=== PATIENT | male | born 1980 | race Hispanic/Latino ===

== ENCOUNTER → 2016-06-11 | Outpatient (CLI) | payer OTHER ==
--- NOTE | 2016-06-14 08:12 | ECHOCARDIOGRAPHY REPORT ---
PROCEDURE PHYSICIAN: TRACEY SCHERER DATE OF PROCEDURE: 06/11/2016 TWO DIMENSIONAL ECHOCARDIOGRAM REPORT PRIMARY PHYSICIAN: OTHER PHYSICIAN: [facility] REFERRING PHYSICIAN: ORDERING PHYSICIAN: Dana Reeys APRN INDICATION FOR THE PROCEDURE: Chest discomfort. MEASUREMENTS DERIVED VALUES LV DIAMETER (LAX) NORMALS NORMALS Diastolic 4.2 (3.6-5.2) Eject. Fract. (60%+/-6%) Systolic (2.3-3.9) Diastolic Vol. % Shortening (0.22-0.42) Systolic Vol. Aortic Root 3.4 IVS THICKNESS Diastolic 1.1 (0.6-1.1) LVPW THICKNESS Diastolic 1.2 (0.6-1.1) LA DIAMETER Systolic 3.3 (2.1-3.7) DESCRIPTION: Two-dimensional echocardiography shows normal global left ventricular systolic function with normal regional wall motion. Aortic, mitral and tricuspid valve leaflets show good leaflet excursion. There is no significant pericardial effusion. There is no evidence of any significant pericardial effusion. Doppler imaging shows trivial, mitral, tricuspid, aortic and pulmonic regurgitation. There is no Doppler evidence of any significant valvular stenosis. Aortic valve appears to be trileaflet. There is no evidence of any significant intracardiac shunt on this transthoracic echocardiographic study, although the subcostal views are limited. Inferior vena cava does not appear dilated and does exhibit inspiratory collapse. CONCLUSIONS: 1. Normal global left ventricular systolic function with an ejection fraction of 65%. 2. Trivial aortic, mitral, tricuspid, and pulmonic regurgitation. 3. No evidence of significant valvular stenosis. 4. Pulmonary artery systolic pressure could not be reliably estimated on this study. Job ID: [id number] Dictated Date: 06/13/2016 09:44:24 Core Cutter And Reamer Date: 06/14/2016 08:03:34 / [email or web address]
--- NOTE | 2016-06-14 11:16 | STRESS TEST ---
PROCEDURE PHYSICIAN: TRACEY SCHERER EXERCISE STRESS ECHOCARDIOGRAPHY REPORT DATE OF PROCEDURE: 06/11/2016 ORDERING PHYSICIAN: Dana Reyes PLASTIC EXTRUDING MACHINE OPERATOR [place], [place]. CLINICAL DIAGNOSIS: Chest discomfort. Baseline echocardiography showed normal global left ventricular systolic function with normal regional wall motion. Subsequently, exercise was carried out on a treadmill. John protocol was employed. Heart rate response to exercise was normal. Blood pressure response to exercise was hypertensive. There were significant ST segment changes with exercise. There was no significant arrhythmia. The test was stopped on account of fatigue. He exercised for a total of 12 minutes and the John protocol and attained 12.8 METs of workload and 105% of maximum predicted heart rate. Exercise was repeated in immediately post exercise and it showed normal augmentation of wall motion and ejection fraction. No regional wall motion abnormalities are seen. CONCLUSION: 1. No evidence of any exercise-induced myocardial ischemia on this study. 2. No evidence of myocardial infarction on this study. 3. Normal global left ventricular systolic function with an ejection fraction of approximately 50% at baseline. 4. Hypertensive response to exercise. Job ID: [id number] Dictated Date: 06/13/2016 09:47:15 Html Web Developer Date: 06/14/2016 11:02:04 / [email or web address]
== END ==
LOC: CARD 08:33
PROVIDERS: ATTEND Nurse Practitioner Family
DX: R07.9 Chest pain, unspecified (principal)
CPT/HCPCS: 93306; 93351

== ENCOUNTER 2020-08-20 02:51 | Emergency (ER) | payer SELFPAY ==
[~2020-08-20] VITALS: Ht 165 cm; Wt 82.0 kg
[2020-08-20] MEDS ORDERED: LACTATED RINGERS 1,000 ML IV ONE (03:00)
[2020-08-20 03:12] LABS: BASOPHILS % (AUTO) 0 % (0-10); EOSINOPHILS # (AUTO) 0.1 10^3/uL (0.0-0.3); EOSINOPHILS % (AUTO) 1 % (0-10); HEMATOCRIT 48 % (40-54); HEMOGLOBIN 15.5 g/dL (13.3-17.7); LYMPHOCYTES # (AUTO) 1.9 10^3/uL (1.0-4.0); LYMPHOCYTES % (AUTO) 22 % (12-44); MEAN CORPUSCULAR HEMOGLOBIN 27 pg (25-34); MEAN CORPUSCULAR HGB CONC 32 g/dL (32-36); MEAN CORPUSCULAR VOLUME 85 fL (80-99); MEAN PLATELET VOLUME 10.1 fL (9.0-12.2); MONOCYTES # (AUTO) 0.7 10^3/uL (0.0-1.0); MONOCYTES % (AUTO) 8 % (0-12); NEUTROPHILS # (AUTO) 5.7 10^3/uL (1.8-7.8); NEUTROPHILS % (AUTO) 68 % (42-75); PLATELET COUNT 239 10^3/uL (130-400); WHITE BLOOD COUNT 8.3 10^3/uL (4.3-11.0)
--- NOTE | 2020-08-20 03:12 | ED Syncope ---
General Chief Complaint: Dizziness/Syncope Stated Complaint: DIZZY,LIGHTHEADED Source of Information: Patient Exam Limitations: No Limitations History of Present Illness Date Seen by Provider: Aug 20, 2020 Time Seen by Provider: 02:47 Initial Comments Patient to the ER by EMS from home with chief complaint that he passed out and was on the ground in the kitchen. Patient states he was only out for a couple seconds maybe a minute. the patient relates that he was having an argument with his son and his about the son being out late at night and he says bad things happen to people at night. He became very emotionally distraught about this argument and decided he was done arguing. He went and got his tea that helps calm him down but he drinks before he goes to bed drank it and then apparently passed out on the floor in the kitchen which is where EMS found him. EMS relates that he did have a fever of [address] route however nursing took his temperature on arrival and it was 98.0 oral. Patient denies any recent fevers chills cough shortness of air chest pain nausea vomiting diarrhea dysuria constipation or travel outside the [facility]. No sick contacts other than he has a young child with asthma. He says he has a history of hyperlipidemia and may be hypertension and follows with community health however they put him on some medicine and he did not like how it made him feel so he does not take it. Allergies and Home Medications Allergies Coded Allergies: No Known Drug Allergies (Unverified , 08/20/20) Patient Home Medication List Home Medication List Reviewed: Yes Review of Systems Constitutional: No chills, No fever, No malaise EENTM: No ear discharge, No ear pain Respiratory: No cough, No short of breath Cardiovascular: No edema, No palpitations Gastrointestinal: No abdominal pain, No nausea, No vomiting Genitourinary: No discharge, No dysuria Musculoskeletal: No back pain, No joint pain All Other Systems Reviewed Negative Unless Noted: Yes Past Wnbluws-Kfxjha-Lnaupb Hx Patient Social History Alcohol Use: Denies Use Drug of Choice: Denies Smoking Status: Never a Smoker 2nd Hand Smoke Exposure: No Recent Hopitalizations: No Immunizations Up To Date Tetanus Booster (TDap): Unknown Seasonal Allergies Seasonal Allergies: No Past Medical History Surgeries: No Respiratory: No Cardiac: Yes High Cholesterol Neurological: No Genitourinary: No Gastrointestinal: No Musculoskeletal: No Endocrine: No HEENT: No Cancer: No Psychosocial: No Integumentary: No Blood Disorders: No Physical Exam Vital Signs Vital Signs - First Documented 08/20/20 02:54 Temp 37.0 Pulse 105 Resp 18 B/P (MAP) 170/120 (137) Pulse Ox 98 O2 Delivery Room Air Capillary Refill : Height, Weight, BMI Height: '" Weight: lbs. oz. kg; BMI Method: General Appearance: WD/WN, Mild Distress HEENT: PERRL/EOMI, Pharynx Normal, Moist Mucous Membranes Neck: Full Range of Motion, Normal Inspection Cardiovascular: Regular Rate, Rhythm, No Edema, No Gallop, No JVD, No Murmur, Normal Peripheral Pulses Respiratory: Lungs Clear, Normal Breath Sounds, No Accessory Muscle Use, No Respiratory Distress Gastrointestinal: Normal Bowel Sounds, No Organomegaly, Soft Neurologic/Psychiatric: Alert, Oriented x3, No Motor/Sensory Deficits Cranial Nerves: Normal Hearing, Normal Speech, PERRL Coordination/Gait: Normal Gait Motor/Sensory: No Motor Deficit, No Sensory Deficit Skin: Normal Color, Warm/Dry Progress/Results/Core Measures Results/Orders Lab Results Laboratory Tests Test 08/20/20 02:59 08/20/20 03:00 08/20/20 03:19 Range/Units White Blood Count 8.3 4.3-11.0 10^3/uL Red Blood Count 5.70 H 4.30-5.52 10^6/uL Hemoglobin 15.5 13.3-17.7 g/dL Hematocrit 48 40-54 % Mean Corpuscular Volume 85 80-99 fL Mean Corpuscular Hemoglobin 27 25-34 pg Mean Corpuscular Hemoglobin Concent 32 32-36 g/dL Red Cell Distribution Width 12.6 10.0-14.5 % Platelet Count 239 130-400 10^3/uL Mean Platelet Volume 10.1 9.0-12.2 fL Immature Granulocyte % (Auto) 1 % Neutrophils (%) (Auto) 68 42-75 % Lymphocytes (%) (Auto) 22 12-44 % Monocytes (%) (Auto) 8 0-12 % Eosinophils (%) (Auto) 1 0-10 % Basophils (%) (Auto) 0 0-10 % Neutrophils # (Auto) 5.7 1.8-7.8 10^3/uL Lymphocytes # (Auto) 1.9 1.0-4.0 10^3/uL Monocytes # (Auto) 0.7 0.0-1.0 10^3/uL Eosinophils # (Auto) 0.1 0.0-0.3 10^3/uL Basophils # (Auto) 0.0 0.0-0.1 10^3/uL Immature Granulocyte # (Auto) 0.0 0.0-0.1 10^3/uL Prothrombin Time 12.7 12.2-14.7 SEC INR Comment 0.9 0.8-1.4 Activated Partial Thromboplast Time 27 24-35 SEC Sodium Level 138 135-145 MMOL/L Potassium Level 3.6 3.6-5.0 MMOL/L Chloride Level 103 98-107 MMOL/L Carbon Dioxide Level 22 21-32 MMOL/L Anion Gap 13 5-14 MMOL/L Blood Urea Nitrogen 17 7-18 MG/DL Creatinine 0.99 0.60-1.30 MG/DL Estimat Glomerular Filtration Rate > 60 BUN/Creatinine Ratio 17 Glucose Level 138 H 70-105 MG/DL Calcium Level 9.5 8.5-10.1 MG/DL Corrected Calcium 8.5-10.1 MG/DL Total Bilirubin 0.2 0.1-1.0 MG/DL Aspartate Amino Transf (AST/SGOT) 29 5-34 U/L Alanine Aminotransferase (ALT/SGPT) 32 0-55 U/L Alkaline Phosphatase 59 40-136 U/L Troponin I < 0.028 <0.028 NG/ML C-Reactive Protein High Sensitivity 0.10 0.00-0.50 MG/DL Total Protein 8.1 6.4-8.2 GM/DL Albumin 4.7 H 3.2-4.5 GM/DL Serum Alcohol < 10 <10 MG/DL Coronavirus 2019 (ASHWIN) Negative Negative Urine Color YELLOW Urine Clarity CLEAR Urine pH 6.0 5-9 Urine Specific [place] 1.010 L 1.016-1.022 Urine Protein NEGATIVE NEGATIVE Urine Glucose (UA) NEGATIVE NEGATIVE Urine Ketones NEGATIVE NEGATIVE Urine Nitrite NEGATIVE NEGATIVE Urine Bilirubin NEGATIVE NEGATIVE Urine Urobilinogen 0.2 < = 1.0 MG/DL Urine Leukocyte Esterase 1+ H NEGATIVE Urine RBC (Auto) NEGATIVE NEGATIVE Urine RBC NONE /HPF Urine WBC 25-50 H /HPF Urine Crystals NONE /LPF Urine Bacteria FEW H /HPF Urine Casts NONE /LPF Urine Mucus NEGATIVE /LPF Urine Culture Indicated YES Urine Opiates Screen NEGATIVE NEGATIVE Urine Oxycodone Screen NEGATIVE NEGATIVE Urine Methadone Screen NEGATIVE NEGATIVE Urine Propoxyphene Screen NEGATIVE NEGATIVE Urine Barbiturates Screen NEGATIVE NEGATIVE Ur Tricyclic Antidepressants Screen NEGATIVE NEGATIVE Urine Phencyclidine Screen NEGATIVE NEGATIVE Urine Amphetamines Screen NEGATIVE NEGATIVE Urine Methamphetamines Screen NEGATIVE NEGATIVE Urine Benzodiazepines Screen NEGATIVE NEGATIVE Urine Cocaine Screen NEGATIVE NEGATIVE Urine Cannabinoids Screen NEGATIVE NEGATIVE Micro Results Microbiology 08/20/20 Influenza Types A,B Antigen (JORGE) - Final, Complete My Orders Orders - VINH BENTON Cbc With Automated Diff (08/20/20 03:05) Comprehensive Metabolic Panel (08/20/20 03:05) Hs C Reactive Protein (08/20/20 03:05) Ua Culture If Indicated (08/20/20 03:05) Drug Screen Stat (Urine) (08/20/20 03:05) Covid 19 Inhouse Test (08/20/20 03:05) Influenza A And B Antigens (08/20/20 03:05) Ekg Tracing (08/20/20 03:05) Continuous Ekg Monitoring (08/20/20 03:05) Protime With Inr (08/20/20 03:05) Partial Thromboplastin Time (08/20/20 03:05) Troponin I (08/20/20 03:05) Chest 1 View, Ap/Pa Only (08/20/20 03:05) Lactated Ringers (Lr 1000 Ml Iv Solution (08/20/20 03:00) Alcohol (08/20/20 03:12) Urine Culture (08/20/20 03:19) BNP (08/20/20 03:42) Medications Given in ED Current Medications Medications Dose Ordered Sig/Jean Claude Route Start Time Stop Time Status Last Admin Dose Admin Lactated Ringer's 1,000 ml @ ud STK-MED ONCE IV 08/20/20 03:00 08/20/20 03:07 DC 08/20/20 03:11 0 MLS/HR Vital Signs/I&O 08/20/20 02:54 Temp 37.0 Pulse 105 Resp 18 B/P (MAP) 170/120 (137) Pulse Ox 98 O2 Delivery Room Air Progress Progress Note #1: Time: 03:10 Progress Note Plan to check some labs including a troponin, BNP and get an EKG and chest x- ray. His syncopal episode appears to be more related to an emotional state. We will check alcohol and drug screen since he is tachycardic and has elevated blood pressure 200/110 per EMS. He is 155/107 here in the ER as he is coming down his blood pressure has been coming down. We will give him a liter of fluids. He is not having any discomfort at this time and denies having any fevers or chills. Progress Note #2: Time: 03:40 Progress Note 2 points Nauruan Syncope Risk Score; Medium risk. 5.1% risk of 30-day serious adverse event. We will treat his pyuria outpatient with Keflex. He has aseptic vital signs at this time. Initial ECG Impression Date: Aug 20, 2020 Initial ECG Impression Time: 03:12 Initial ECG Rate: 90 Initial ECG Rhythm: Normal Sinus Initial ECG Intervals: Normal Initial ECG Impression: Normal Comment Normal sinus rhythm without clinically relevant ST elevation or depression. Diagnostic Imaging Diagonstic Imaging: Xray Plain Films/CT/US/NM/MRI: chest Comments No acute cardiopulmonary processes on 1 view chest x-ray Reviewed: Reviewed by Me Departure Impression Primary Impression: Syncope Qualified Codes: R55 - Syncope and collapse Disposition: HOME, SELF-CARE Condition: Stable Departure-Patient Inst. Decision time for Depature: 04:00 Referrals: [facility]/YONI JONES MD NO,LOCAL PHYSICIAN (PCP) Primary Care Physician Patient Instructions: Syncope (Fainting) (DC) Add. Discharge Instructions: Your blood pressure was elevated when you arrived however went back down to normal as you calm down. Because it was elevated and you passed out tonight this concerns as there could be something going on with your heart. Your blood work tonight looks okay so I would like you to follow-up with Dr. Morgan the heart doctor next week. Call for an appointment on Friday. Return to the ER promptly if you have more passing out episodes, chest pain or shortness of breath. I would like you to take cefdinir and antibiotic for the next 7 days to help clear up a bladder infection. All discharge instructions reviewed with patient and/or family. Voiced understanding. Scripts Cefdinir (Cefdinir) 300 Mg Capsule 300 MG PO BID, #14 CAP 0 Refills Prov: VINH BENTON 08/20/20 Work/School Note: Work Release Form Date Seen in the Emergency Department: Aug 20, 2020 Return to Work: Aug 21, 2020 Restrictions: No Restrictions Copy Copies To 1: YONI MORGAN MD, TITUS J Aug 20, 2020 03:12
[2020-08-20 03:20] LABS: ALBUMIN 4.7 GM/DL (3.2-4.5)
[2020-08-20 03:21] LABS: CHLORIDE 103 MMOL/L (98-107); POTASSIUM 3.6 MMOL/L (3.6-5.0); SODIUM 138 MMOL/L (135-145)
[2020-08-20 03:22] LABS: CALCIUM 9.5 MG/DL (8.5-10.1)
[2020-08-20 03:23] LABS: GLUCOSE 138 MG/DL (70-105); TOTAL PROTEIN 8.1 GM/DL (6.4-8.2)
[2020-08-20 03:24] LABS: CARBON DIOXIDE 22 MMOL/L (21-32); INR 0.9 (0.8-1.4); PROTHROMBIN TIME PATIENT 12.7 SEC (12.2-14.7)
[2020-08-20 03:25] LABS: BILIRUBIN,TOTAL 0.2 MG/DL (0.1-1.0)
[2020-08-20 03:26] LABS: ALKALINE PHOSPHATASE 59 U/L (40-136)
[2020-08-20 03:27] LABS: CREATININE SERUM 0.99 MG/DL (0.60-1.30); GFR ESTIMATED > 60
[2020-08-20 03:28] LABS: BILIRUBIN,URINE NEGATIVE (NEGATIVE); CLARITY,URINE CLEAR; COLOR,URINE YELLOW; GLUCOSE, URINE (UA) NEGATIVE (NEGATIVE); KETONES,URINE NEGATIVE (NEGATIVE); LEUKOCYTE ESTERASE ,URINE 1+ (NEGATIVE); NITRITE,URINE NEGATIVE (NEGATIVE); PROTEIN,URINE NEGATIVE (NEGATIVE)
[2020-08-20 03:28] LABS: BUN/CREATININE RATIO 17
[2020-08-20 03:29] LABS: ALANINE AMINOTRANSFERASE 32 U/L (0-55)
[2020-08-20 03:38] LABS: BACTERIA,URINE FEW /HPF; WBC,URINE 25-50 /HPF
[2020-08-20 03:53] LABS: AMPHETAMINE SCREEN, URINE NEGATIVE (NEGATIVE); BARBITURATE SCREEN URINE NEGATIVE (NEGATIVE); BENZODIAZEPINES SCREEN URINE NEGATIVE (NEGATIVE); CANNABINOID SCREEN, URINE NEGATIVE (NEGATIVE); COCAINE SCREEN URINE NEGATIVE (NEGATIVE); METHADONE STAT NEGATIVE (NEGATIVE); METHAMPHETAMINE SCREEN URINE S NEGATIVE (NEGATIVE); OPIATE SCREEN URINE NEGATIVE (NEGATIVE); OXYCODONE STAT NEGATIVE (NEGATIVE); PROPOXYPHENE STAT NEGATIVE (NEGATIVE); TRICYCLIC ANTIDEPRESSANTS SCRE NEGATIVE (NEGATIVE)
[2020-08-20] MEDS ORDERED: CEFD300C3 PO (04:02)
[2020-08-20 04:05] VITALS: BP 139/107
--- NOTE | 2020-08-20 05:57 | Diagnostic Imaging Report ---
EXAMINATION: Portable erect AP chest at 3:21 AM INDICATION: Syncope There are no prior studies available for comparison. The heart size is within normal limits. There are few crowded bronchovascular markings in the right infrahilar region but the lungs seem generally clear. There is no evidence for failure, pneumonia or for pleural effusion. The mediastinum is not widened. The osseous structures are intact. External cardiac monitoring electrodes are noted. IMPRESSION: There is no evidence for active disease. Dictated by: Dictated on workstation # [id number]
== END 2020-08-20 04:09 | disposition home or self-care (01) ==
LOC: EDUNIT# 02:51 → ER 02:53
DX: R55 Syncope and collapse (principal); I10 Essential (primary) hypertension; Z20.822 Contact with and (suspected) exposure to COVID-19
CPT/HCPCS: 71045; 80053; 80306; 81000; 83880; 84484; 85025; 85610; 85730; 86141; 87088; 87804; 93005; 96360; 99284; G0480; U0002; 36415; 80320; 87635